=== PATIENT | male | born 1995 | race Caucasian/White ===

== ENCOUNTER 2016-12-27 20:05 | Emergency (ER) | payer OTHER ==
[2016-12-27 20:59] VITALS: BP 125/83
== END 2016-12-27 20:59 | disposition home or self-care (01) ==
LOC: ED 20:05
DX: F41.9 Anxiety disorder, unspecified (principal)

== ENCOUNTER 2018-08-30 02:52 | Emergency (ER) | payer OTHER ==
[~2018-08-30] VITALS: Ht 175.3 cm; Wt 78.9 kg
[2018-08-30 02:57] VITALS: Ht 175.3 cm; Wt 78.9 kg
[2018-08-30 03:07] VITALS: BP 143/88
== END 2018-08-30 03:40 | disposition home or self-care (01) ==
LOC: ED 02:52
DX: F41.9 Anxiety disorder, unspecified (principal); R07.89 Other chest pain; J45.909 Unspecified asthma, uncomplicated; Z98.890 Other specified postprocedural states

== ENCOUNTER 2020-04-28 16:29 | Emergency (ER) | payer OTHER ==
[~2020-04-28] VITALS: Ht 175.3 cm; Wt 78.9 kg
[2020-04-28 16:43] VITALS: Ht 175.3 cm; Wt 78.9 kg
[2020-04-28 19:09] VITALS: BP 142/82
== END 2020-04-28 19:09 | disposition home or self-care (01) ==
LOC: ED 16:29
DX: G51.9 Disorder of facial nerve, unspecified (principal); J45.909 Unspecified asthma, uncomplicated; Z98.890 Other specified postprocedural states